=== PATIENT | male | born 1990 | race African-American/Black ===

== ENCOUNTER 2022-12-24 19:53 | Emergency (ER) | payer MEDICAID ==
[~2022-12-24] VITALS: Ht 175.3 cm; Wt 115.7 kg
[2022-12-24 20:10] VITALS: BP 116/70
--- NOTE | 2022-12-24 20:52 | NUR ---
PT W/C ASSISTED TO BED #4
--- NOTE | 2022-12-24 20:56 | NUR ---
MD Grullon at bedside examining pt.
--- NOTE | 2022-12-24 20:58 | NUR ---
Pt taken to CT for imaging.
--- NOTE | 2022-12-24 21:05 | NUR ---
Wound care provided to laceration to the left scalp; Tolerated well.
[2022-12-24] MEDS ORDERED: LIDOCAINE 1% 500 MG/ 50 ML VIAL INJ ONE (21:10)
[2022-12-24] MEDS ORDERED: LIDOCAINE MPF 1% 5 ML ONE (21:11)
--- NOTE | 2022-12-24 22:00 | NUR ---
Patient has a 5 cm laceration to L side of scalp. Dr. Grullon applied sutures using sterile technique. Edges well approximated. Site cleansed with NS. No bleeding noted. Pt tolerated well.
--- NOTE | 2022-12-24 22:29 | NUR ---
Patient discharged with v/s stable. Written and verbal after care instructions given and explained. Patient verbalized understanding. Ambulatory with steady gait. All questions addressed prior to discharge. Advised to follow up with PMD.
[2022-12-24 22:33] VITALS: BP 124/71
== END 2022-12-24 22:29 | disposition home or self-care (01) ==
LOC: MED 19:53
DX: S01.01XA Laceration without foreign body of scalp, initial encounter (principal); W18.30XA Fall on same level, unspecified, initial encounter; Y93.89 Activity, other specified; Y92.89 Other specified places as the place of occurrence of the external cause; Y99.8 Other external cause status
CPT/HCPCS: 12002; 70450; 99284; J2001

== ENCOUNTER 2023-01-01 21:46 | Emergency (ER) | payer MEDICAID ==
[~2023-01-01] VITALS: Ht 175.3 cm; Wt 119.3 kg
[2023-01-01 22:20] VITALS: BP 130/79
--- NOTE | 2023-01-01 22:23 | NUR ---
TO LOBBY A/W BED AMBULATORY
--- NOTE | 2023-01-01 22:47 | NUR ---
Patient discharged by Dr. Schmidt. Addendum: 01/01/23 at 2336 by [email or web address] Patient discharged by Dr. Schmidt. No nursing interventions provided by patient.
== END 2023-01-01 22:47 | disposition home or self-care (01) ==
LOC: MED 21:46
DX: S01.01XD Laceration without foreign body of scalp, subsequent encounter (principal); Z48.02 Encounter for removal of sutures; W18.39XD Other fall on same level, subsequent encounter
CPT/HCPCS: 99281